=== PATIENT | male | born 1955 | race Caucasian/White ===

== ENCOUNTER 2025-04-29 22:22 | Emergency (ER) | payer MEDICARE, SELFPAY ==
[2025-04-29 22:27] VITALS: O2SAT 92
[2025-04-29 22:28] VITALS: BP 111/72; PULSE 88; O2SAT 97
[2025-04-29 22:30] VITALS: BP 111/72; PULSE 87; PULSE 90; RESP 18; TEMP 36.6; O2SAT 95; BMI 31.6
--- NOTE | 2025-04-29 22:37 | EKG_ITS ---
[address] [address] Test Date: 2025-04-29 Pat Name: Bryn Granger Department: Room: Gender: Male Professor Of Engineering: KEARA : 1955 Requested By: Order Number: [id number] Reading MD: Tony Fitzgerald Measurements Intervals [place] Rate: 88 P: 59 MN: 194 QRS: 42 QRSD: 94 T: 52 QT: 402 QTc: 486 Interpretive Statements Normal sinus rhythm Prolonged QT Electronically Signed On 05-06-2025 14:03:03 PDT by Tony Fitzgerald
--- NOTE | 2025-04-29 22:37 | DI.CT.S_ITS ---
PROCEDURE: CT STROKE INDICATIONS: Positive BE-FAST, Stroke symptoms TECHNIQUE: Noncontrast 4.5 mm thick angled axial sections acquired from the foramen magnum to the vertex, with coronal reformats. For radiation dose reduction, the following was used: automated exposure control, adjustment of mA and/or kV according to patient size. COMPARISON: [facility], CT, CT ANGIO HEAD AND NECK, 04/29/2025, 22:45. FINDINGS: Image quality: Diagnostic. CSF spaces: Basal cisterns are patent. No extra-axial fluid collections. The ventricles are symmetric in size and shape. Brain: No intracranial bleeds or mass effect. There is cerebral volume loss, with resultant ventricular and sulcal prominence. There are periventricular and deep white matter chronic small vessel ischemic changes. There is intracranial internal carotid artery atherosclerosis. Skull and face: Calvarium and visualized facial bones appear intact, without suspicious lesions. Sinuses: Visualized sinuses and mastoids are clear. IMPRESSION: 1. No acute intracranial process. 2. Mild atrophy and chronic microvascular ischemic changes. The above findings were discussed with Dr. Osbaldo Judge on 04/29/2025 at 11:04 p.m. This study fulfills neurological imaging criteria for inclusion or exclusion of acute stroke therapies based on available published neurological guidelines. Dictated by: Claudia Hassan M.D. on 04/29/2025 at 23:04 Approved by: Claudia Hassan M.D. on 04/29/2025 at 23:05
--- NOTE | 2025-04-29 22:37 | DI.CT.S_ITS ---
PROCEDURE: CT ANGIO HEAD AND NECK INDICATIONS: dizzy TECHNIQUE: After the administration of intravenous contrast, 1 mm thick sections acquired from the aortic arch through the [place]. 3-dimensional eeyjzxt-hfdwjxmsk-qnelykyxoq (MIP) and/or volume rendering reformats were acquired of the central intracranial vasculature and neck separately. For radiation dose reduction, the following was used: automated exposure control, adjustment of mA and/or kV according to patient size. COMPARISON: [facility], CT, CT STROKE, 04/29/2025, 22:45. FINDINGS: Image quality: Diagnostic. Cerebral CT Angiogram: Internal carotid arteries: No acute findings. Intracranial ICA are patent with no significant stenosis. No occlusion. No aneurysm. Anterior cerebral arteries: Unremarkable. No significant stenosis. No occlusion. No aneurysm. Middle cerebral arteries: Unremarkable. No significant stenosis. No occlusion. No aneurysm. Posterior cerebral arteries: Unremarkable. No significant stenosis. No occlusion. No aneurysm. Basilar artery: Unremarkable. No significant stenosis. No occlusion. No aneurysm. Vertebral arteries: Left vertebral artery dominance. Dural venous sinuses: Unremarkable given phase of enhancement. Other: Arterial phase appearance of the brain parenchyma is unremarkable. Neck CT Angiogram: Internal carotid arteries: Unremarkable. No significant stenosis. No dissection or occlusion. Common carotid arteries: Unremarkable. No significant stenosis. No dissection or occlusion. External carotid arteries: Unremarkable. No occlusion. Vertebral arteries: Unremarkable. No significant stenosis. No dissection or occlusion. Aortic Arch and Mediastinum: Partially visualized aortic arch unremarkable without evidence of aneurysm. Origins of the great vessels unremarkable. Other: Arterial phase soft tissues of the neck and chest are unremarkable. There is a comminuted fracture the right clavicular head with associated hematoma. IMPRESSION: No significant intracranial arterial abnormality is seen. No significant abnormality is seen within the arteries of the neck. Comminuted right clavicular head fracture with associated hematoma. Any quantitative measurements of stenosis were performed using NASCET criteria. Dictated by: Claudia Hassan M.D. on 04/29/2025 at 23:05 Approved by: Claudia Hassan M.D. on 04/29/2025 at 23:08
--- NOTE | 2025-04-29 22:37 | DI.RAD.S_ITS ---
PROCEDURE: XR CHEST 1V INDICATIONS: Possible stroke TECHNIQUE: One view of the chest was acquired. COMPARISON: None. FINDINGS: Surgical changes and devices: None. Lungs and pleura: Lungs are clear. No pleural effusions or pneumothorax. Mediastinum: Mediastinal contours appear normal. Heart size is normal. Bones and chest wall: No suspicious bony lesions. Overlying soft tissues appear unremarkable. IMPRESSION: No acute pulmonary process. Dictated by: Claudia Hassan M.D. on 04/29/2025 at 23:47 Approved by: Claudia Hassan M.D. on 04/29/2025 at 23:47
[2025-04-29 22:48] LABS: INR 1.1 (0.9-1.3); Prothrombin Time 11.9 SECONDS (9.4-12.5)
[2025-04-29 22:50] LABS: PTT Partial Thromboplastin Tim 25 SECONDS (25.1-36.5)
[2025-04-29 22:52] LABS: Alanine Aminotransferase 29 IU/L (<50); Albumin 3.8 g/dL (3.5-5.0); Albumin Globulin Ratio 1.4 (1.0-2.8); Alkaline Phosphatase 62 U/L (38-126); Blood Urea Nitrogen 12 mg/dL (9-20); Calcium 8.3 mg/dL (8.4-10.2); Carbon Dioxide 27 mmol/L (22-32); Chloride 105 mmol/L (98-107); Creatine Kinase 75 U/L (55-170); Estimated Glomerular Filt Rate > 60 mL/min (>60); Globulin 2.8 g/dL (1.7-4.1); Glucose 127 mg/dL (70-99); HEMOLYSIS < 15 (0-50); Sodium 142 mmol/L (137-145); Total Protein 6.6 g/dL (6.3-8.2)
--- NOTE | 2025-04-29 22:57 | ED_ITS ---
HPI - Dizziness General Chief Complaint: Dizziness Stated Complaint: Dizziness, lack of coord x1 hr Time Seen by Provider: 04/29/25 22:28 Source: patient and family Mode of arrival: Wheelchair History of Present Illness HPI Narrative: 69-year-old gentleman history of hypertension gout daily drinker was out with his family tonight came home to his son's house in front of his yd passed out into the ditch. He is complaining of shoulder pain at this time but denies headache, nausea, vomiting, blurred vision, chest pain, shortness of breath, nausea, vomiting, diarrhea. This has never happened to him before. He denies taking any other illicit drugs or any history of CVA TIA or vertigo. Other than what is stated 14 point review of system is negative. Related Data Allergies Allergy/AdvReac Type Severity Reaction Status Date / Time Penicillins Allergy Mild Rash Verified 04/29/25 22:31 Review of Systems Review of Systems ROS Unobtainable: All systems reviewed & are unremarkable except as noted in HPI and below Patient History Social History Smoking Status: Never smoker Smoking Status: Never smoker Exam Narrative Exam Narrative: GENERAL: [69] year old patient appears stated age. Well-developed patient, in mild distress. HEAD: Atraumatic. Normocephalic. EYES: Pupils equal round and reactive. Extraocular motions intact. No scleral icterus. No injection or drainage. ENT: Nose without bleeding, purulent drainage. Throat without erythema, tonsillar hypertrophy or exudate. Airway patent. NECK: Trachea midline. Non tender CARDIOVASCULAR: Regular rate and rhythm without murmurs, gallops, or rubs. RESPIRATORY: Clear to auscultation. Breath sounds equal bilaterally. No wheezes, rales, or rhonchi. GASTROINTESTINAL: Abdomen soft, non-tender, nondistended. EXTREMITIES: No edema or joint tenderness. BACK: Nontender without deformity or crepitance. No flank tenderness. NEURO: AOx3. GCS 15 focal neuro exam orwzds-gq-hezn opposite gtsm-aa-fgse rapid alternating movements all intact negative Romberg SKIN: No rash or erythema of visible areas Initial Vital Signs Initial Vital Signs: Vital Signs Temperature 97.8 F 04/29/25 22:30 Pulse Rate 90 04/29/25 22:30 Respiratory Rate 18 04/29/25 22:30 Blood Pressure 111/72 04/29/25 22:30 Pulse Oximetry 95 04/29/25 22:30 Oxygen Delivery Method Room Air 04/29/25 22:30 Course Orders Ordered: ED Orders 04/29/25 22:30 Complete Blood Count AUTO DIFF Stat Comprehensive Metabolic Panel Stat ETOH [Ethanol (ETOH)] Stat MAG [Magnesium] Stat PTT Partial Thromboplastin Brayan Stat Prothrombin Time INR Stat Troponin & CK Cardiac Panel Stat 04/29/25 22:[address] angio head and neck Stat XR chest 1V Stat Urine Drug Screen, Rapid Stat EKG-12 Lead Stat 04/29/25 23:29 XR shoulder RT 2+ views Stat Magnesium Sulfate (Magnesium Sulfate) 2 gm in 50 mls @ 25 mls/hr IV NOW ONE Stop: 04/30/25 02:18 Last Admin: 04/30/25 00:24 Dose: 25 mls/hr Documented By: CHARLOTTE Co-signed By: LYNDSEY Ondansetron HCl (Ondansetron 4 Mg/2 Ml Inj) 4 mg IV NOW PRN PRN Reason: Nausea And Vomiting Discontinued Medications Sodium Chloride (Normal Saline 0.9%) 1,000 mls @ 1,000 mls/hr IV BOLUS ONE Stop: 04/30/25 00:14 Last Admin: 04/29/25 23:25 Dose: 1,000 mls/hr Documented By: DOLLY Potassium Chloride (Potassium Chloride 20 Meq/15 Ml Udc) 40 meq PO NOW ONE Stop: 04/29/25 23:06 Last Admin: 04/29/25 23:24 Dose: 40 meq Documented By: DOLLY Vital Signs Vital signs: Vital Signs - 8 hr 04/29/25 22:30 Temperature 97.8 F Pulse Rate 90 Respiratory Rate 18 Blood Pressure 111/72 Pulse Oximetry 95 Oxygen Delivery Method Room Air MDM - Dizziness Lab Data 04/29/25 22:30 04/29/25 22:30 Labs: Lab Results 04/29/25 04/29/25 Range/Units 22:28 22:30 WBC 7.7 (4.5-11.0) X10^3/uL RBC 3.24 L (4.5-5.9) X10^6/uL Hgb 12.4 L (13.5-17.5) g/dL Hct 35.0 L (41-53) % MCV 108.0 H (80-100) fL MCH 38.4 H (26-34) PG MCHC 35.5 (30-36) % RDW 14.0 (11.6-14.8) % Plt Count 179 (150-400) X10^3/uL Neut % (Auto) Not Reportable Lymph % (Auto) Not Reportable Carbon % (Auto) Not Reportable Eos % (Auto) Not Reportable Baso % (Auto) Not Reportable Lymph # (Auto) Not Reportable Carbon # (Auto) Not Reportable Baso # (Auto) Not Reportable Total Counted 100 Seg Neutrophils % 42.0 (38-70) % Lymphocytes % (Manual) 42.0 (25-45) % Atypical Lymphs % 3.0 H ( - 0) % Monocytes % (Manual) 9.0 (2-11) % Eosinophils % (Manual) 3.0 (2-4) % Basophils % (Manual) 1.0 (0-1) % Neutrophils # (Manual) 3234 (2182-6788) /uL RBC Morphology See below Rouleaux 1+ H PT 11.9 (9.4-12.5) SECONDS INR 1.1 (0.9-1.3) APTT 25 L (25.1-36.5) SECONDS Sodium 142 (137-145) mmol/L Potassium 2.7 L* (3.4-5.1) mmol/L Chloride 105 (98-107) mmol/L Carbon Dioxide 27 (22-32) mmol/L BUN 12 (9-20) mg/dL Creatinine 0.83 (0.66-1.25) mg/dL Estimated GFR > 60 (>60) mL/min BUN/Creatinine Ratio 14.5 (6-22) Glucose 127 H (70-99) mg/dL POC Whole Bld Glucose 124 H (70-99) mg/dL Calcium 8.3 L (8.4-10.2) mg/dL Magnesium 1.5 L (1.6-2.3) mg/dL Total Bilirubin 0.6 (0.2-1.3) mg/dL AST 54 (17-59) IU/L ALT 29 (<50) IU/L Alkaline Phosphatase 62 (38-126) U/L Total Creatine Kinase 75 (55-170) U/L Troponin I < 0.012 (0.01-0.034) ng/mL Total Protein 6.6 (6.3-8.2) g/dL Albumin 3.8 (3.5-5.0) g/dL Globulin 2.8 (1.7-4.1) g/dL Albumin/Globulin Ratio 1.4 (1.0-2.8) Ethyl Alcohol 197 H (<10) mg/dL Imaging Data Chest x-ray: Radiologist's Impression: [address] [address] XRay Report Signed Patient: Bryn Granger MR#: [id number] : 1955 Acct:[id number] Age/Sex: 69 / M Date of Service: 04/29/25 Loc: ED Accession Number: [id number] Procedure: XR chest 1V Ordering Provider: Osbaldo Judge D.O. PROCEDURE: XR CHEST 1V INDICATIONS: Possible stroke TECHNIQUE: One view of the chest was acquired. COMPARISON: None. FINDINGS: Surgical changes and devices: None. Lungs and pleura: Lungs are clear. No pleural effusions or pneumothorax. Mediastinum: Mediastinal contours appear normal. Heart size is normal. Bones and chest wall: No suspicious bony lesions. Overlying soft tissues appear unremarkable. IMPRESSION: No acute pulmonary process. CT scan - head: Radiologist's Impression: [place] [address] CT Scan Report Signed Patient: Bryn Granger MR#: [id number] : 1955 Acct:[id number] Age/Sex: 69 / M Date of Service: 04/29/25 Loc: ED Accession Number: [id number] Procedure: CT Stroke Ordering Provider: Osbaldo Judge D.O. PROCEDURE: CT STROKE INDICATIONS: Positive BE-FAST, Stroke symptoms TECHNIQUE: Noncontrast 4.5 mm thick angled axial sections acquired from the foramen magnum to the vertex, with coronal reformats. For radiation dose reduction, the following was used: automated exposure control, adjustment of mA and/or kV according to patient size. COMPARISON: [facility], CT, CT ANGIO HEAD AND NECK, 04/29/2025, 22:45. FINDINGS: Image quality: Diagnostic. CSF spaces: Basal cisterns are patent. No extra-axial fluid collections. The ventricles are symmetric in size and shape. Brain: No intracranial bleeds or mass effect. There is cerebral volume loss, with resultant ventricular and sulcal prominence. There are periventricular and deep white matter chronic small vessel ischemic changes. There is intracranial internal carotid artery atherosclerosis. Skull and face: Calvarium and visualized facial bones appear intact, without suspicious lesions. Sinuses: Visualized sinuses and mastoids are clear. IMPRESSION: 1. No acute intracranial process. 2. Mild atrophy and chronic microvascular ischemic changes. The above findings were discussed with Dr. Osbaldo Judge on 04/29/2025 at 11:04 p.m. This study fulfills neurological imaging criteria for inclusion or exclusion of acute stroke therapies based on available published neurological guidelines. Extremity x-ray #1: Radiologist's Impression: Patient: Bryn Granger MR#: [id number] : 1955 Acct:[id number] Age/Sex: 69 / M Date of Service: 04/29/25 Loc: ED Accession Number: [id number] Procedure: CT angio head and neck Ordering Provider: Osbaldo Judge D.O. PROCEDURE: CT ANGIO HEAD AND NECK INDICATIONS: dizzy TECHNIQUE: After the administration of intravenous contrast, 1 mm thick sections acquired from the aortic arch through the [place]. 3-dimensional lwjbhaw-bfftftlic-jimmminjay (MIP) and/or volume rendering reformats were acquired of the central intracranial vasculature and neck separately. For radiation dose reduction, the following was used: automated exposure control, adjustment of mA and/or kV according to patient size. COMPARISON: [facility], CT, CT STROKE, 04/29/2025, 22:45. FINDINGS: Image quality: Diagnostic. Cerebral CT Angiogram: Internal carotid arteries: No acute findings. Intracranial ICA are patent with no significant stenosis. No occlusion. No aneurysm. Anterior cerebral arteries: Unremarkable. No significant stenosis. No occlusion. No aneurysm. Middle cerebral arteries: Unremarkable. No significant stenosis. No occlusion. No aneurysm. Posterior cerebral arteries: Unremarkable. No significant stenosis. No occlusion. No aneurysm. Basilar artery: Unremarkable. No significant stenosis. No occlusion. No aneurysm. Vertebral arteries: Left vertebral artery dominance. Dural venous sinuses: Unremarkable given phase of enhancement. Other: Arterial phase appearance of the brain parenchyma is unremarkable. Neck CT Angiogram: Internal carotid arteries: Unremarkable. No significant stenosis. No dissection or occlusion. Common carotid arteries: Unremarkable. No significant stenosis. No dissection or occlusion. External carotid arteries: Unremarkable. No occlusion. Vertebral arteries: Unremarkable. No significant stenosis. No dissection or occlusion. Aortic Arch and Mediastinum: Partially visualized aortic arch unremarkable without evidence of aneurysm. Origins of the great vessels unremarkable. Other: Arterial phase soft tissues of the neck and chest are unremarkable. There is a comminuted fracture the right clavicular head with associated hematoma. IMPRESSION: No significant intracranial arterial abnormality is seen. No significant abnormality is seen within the arteries of the neck. Comminuted right clavicular head fracture with associated hematoma. Any quantitative measurements of stenosis were performed using NASCET criteria. Extremity x-ray #2: Radiologist's Impression: [address] [address] XRay Report Signed Patient: Bryn Granger MR#: [id number] : 1955 Acct:[id number] Age/Sex: 69 / M Date of Service: 04/29/25 Loc: ED Accession Number: [id number] Procedure: XR shoulder RT 2+ views Ordering Provider: Osbaldo Judge D.O. PROCEDURE: XR SHOULDER RT MIN 2V INDICATIONS: pain s/p fall TECHNIQUE: 3 views of the shoulder were acquired. COMPARISON: None. FINDINGS: Bones: No fractures or dislocations. No suspicious bony lesions. Visualized ribs appear intact. Glenohumeral acromioclavicular degenerative narrowing. Soft tissues: No suspicious soft tissue calcifications. IMPRESSION: No visualized acute fracture or dislocation. However, if clinical concern and/or pain persist, short interval imaging followup in 7-10 days is recommended, as occult injury cannot be definitively excluded. Dictated by: Claudia Hassan M.D. on 04/29/2025 at 23:47 Approved by: Claudia Hassan M.D. on 04/29/2025 at 23:47 ECG Data Interpretation: NSR HR 88 [place] 194 QRS [address]- t wave change No previous EKG to compare MDM Narrative Medical decision making narrative: All lab work, vital signs, nurse triage note, medication list, previous ER visits, and all imaging studies reviewed. CTA head and neck and CT head all reviewed. Comminuted right clavicular head fracture with associated hematoma. Chest x-ray showed no acute process. Shoulder x-ray showed no visualized acute fracture or dislocation. Case d/w Dr.Reem Liliane FERNANDO carbon brusher assembler agree with sling. Patient was given potassium solution magnesium rider fluids here. Repeat 2nd troponin was not obtained as patient wanted to leave against medical advice. and disability and complications of leaving against medical advice were discussed with patient in the presence of his son but patient still wanted to leave. Discharge Plan Departure Patient Disposition: Left Against Medical Advice Clinical Impression: Left against medical advice Clavicle fracture Qualifiers: Encounter type: initial encounter Clavicle location: lateral end Fracture type: closed Fracture alignment: nondisplaced Laterality: right Qualified Code(s): S 42.034A - Nondisplaced fracture of lateral end of right clavicle, initial encounter for closed fracture Syncope Qualifiers: Syncope type: unspecified Qualified Code(s): R55 - Syncope and collapse Instructions: DI for Clavicle Fracture-Adult Activity Restrictions/Additional Instructions: Return with new or worsening symptoms. Follow up with orthopedic surgeon regarding clavicle fracture. Stand Alone Forms: Patient Portal/API, Against Med. Advice (Portuguese)
[2025-04-29 22:58] LABS: Potassium 2.7 mmol/L (3.4-5.1)
[2025-04-29 23:00] VITALS: PULSE 90; RESP 20; O2SAT 98
[2025-04-29 23:03] LABS: Troponin I < 0.012 ng/mL (0.01-0.034)
[2025-04-29 23:07] LABS: Add Manual Diff / Slide Review YES; Hematocrit 35.0 % (41-53); Hemoglobin 12.4 g/dL (13.5-17.5); Mean Corpuscular HGB Conc 35.5 % (30-36); Mean Corpuscular Hemoglobin 38.4 PG (26-34); Mean Corpuscular Volume 108.0 fL (80-100); Platelet Count 179 X10^3/uL (150-400)
[2025-04-29 23:18] LABS: Ethanol (ETOH) 197 mg/dL (<10); Magnesium 1.5 mg/dL (1.6-2.3)
[2025-04-29] MEDS: POTASSIUM CHLORIDE 20 MEQ/15 ML UDC 40 MEQ PO (23:24)
[2025-04-29] MEDS: SODIUM CHLORIDE 0.9% 1,000 ML 1000 ML IV (23:25)
[2025-04-29 23:29] LABS: Atypical Lymphocytes Percent 3.0 %; Basophils Percent Manual 1.0 % (0-1); Eosinophils Percent Manual 3.0 % (2-4); Lymphocytes Percent Manual 42.0 % (25-45); Monocytes Percent Manual 9.0 % (2-11); Neutrophils Absolute Manual 3234 /uL (3000-5900); Rouleaux 1+; Segmented Neutrophils Percent 42.0 % (38-70); Total Cells Counted 100
--- NOTE | 2025-04-29 23:29 | DI.RAD.S_ITS ---
PROCEDURE: XR SHOULDER RT MIN 2V INDICATIONS: pain s/p fall TECHNIQUE: 3 views of the shoulder were acquired. COMPARISON: None. FINDINGS: Bones: No fractures or dislocations. No suspicious bony lesions. Visualized ribs appear intact. Glenohumeral acromioclavicular degenerative narrowing. Soft tissues: No suspicious soft tissue calcifications. IMPRESSION: No visualized acute fracture or dislocation. However, if clinical concern and/or pain persist, short interval imaging followup in 7-10 days is recommended, as occult injury cannot be definitively excluded. Dictated by: Claudia Hassan M.D. on 04/29/2025 at 23:47 Approved by: Claudia Hassan M.D. on 04/29/2025 at 23:47
[2025-04-29 23:30] VITALS: PULSE 92; RESP 19; O2SAT 99
[2025-04-29 23:36] VITALS: BP 159/98; PULSE 93; RESP 14; O2SAT 99
[2025-04-30] VITALS: BP 151/90; PULSE 92; RESP 5; O2SAT 97
[2025-04-30] MEDS: MAGNESIUM SULFATE 2 GM/50 ML PIGGYBACK IV (00:24)
[2025-04-30 00:30] VITALS: BP 153/93; PULSE 93; RESP 14; O2SAT 100
[2025-04-30 01:00] VITALS: BP 164/98; PULSE 92; RESP 15; O2SAT 100
--- NOTE | 2025-04-30 01:13 | PC.NURSE ---
Pt ambulatory to restroom with 1 person standby without difficulty or assistance
--- NOTE | 2025-04-30 01:21 | PC.NURSE ---
Pt states to RN during repeat troponin blood draw that he does not want to wait for results of test. That he will look up results on his My Chart tomorrow. Son is in agreement to take pt home at this time. Dr. Judge made aware.
[2025-04-30 01:23] VITALS: BP 134/89; PULSE 97; RESP 17; O2SAT 100
[2025-04-30 01:52] LABS: Troponin I < 0.012 ng/mL (0.01-0.034)
== END 2025-04-30 02:02 | disposition left against medical advice (07) ==
PROVIDERS: Emergency Provider Family Medicine
DX: S42.034A Nondisplaced fracture of lateral end of right clavicle, initial encounter for closed fracture (principal); R55 Syncope and collapse
CPT/HCPCS: 36415; 70450; 70496; 70498; 71045; 73030; 80053; 80320; 82550; 82962; 83735; 84484; 85007; 85025; 85610; 85730; 93005; 96365; 99285; J3475; Q9967